=== PATIENT | female | born 1930 | race Asian ===

== ENCOUNTER 2017-01-02 08:36 | Inpatient (IN) | payer OTHER ==
[~2017-01-02] VITALS: Ht 149.9 cm; Wt 50.4 kg
[~2017-01-02 08:36] MED LIST: AMLO-512 PO; ASPI81TA2 PO; METO50 PO; OMEP20 PO
[2017-01-02] MEDS ORDERED: HYDR12.530 PO (08:51)
[2017-01-02] MEDS ORDERED: ALBUTEROL SULFATE 2.5 MG/0.5 ML NEB SOLUTION NEB ONE (10:45)
[2017-01-02] MEDS ORDERED: IPRATROPIUM BROMIDE 0.5 MG/2.5 ML NEB SOLUTION NEB ONE ×2 (10:45→16:00)
[2017-01-02 11:07] LABS: HEMATOCRIT 37.3 % (36-46); HEMOGLOBIN 10.7 g/dL (12.0-16.0); MEAN CORPUSCULAR HEMOGLOBIN 16.7 pg (26.0-34.0); MEAN CORPUSCULAR HGB CONC 28.7 G/dL (31.0-37.0); MEAN CORPUSCULAR VOLUME 58 fL (80-100); RED BLOOD CELL COUNT(AUTO) 6.41 MIL/uL (4.00-5.20); RED CELL DISTRIBUTION WIDTH 25.5 % (11.5-14.5); WHITE BLOOD COUNT (AUTO) 6.9 K/uL (4.5-11.0)
[2017-01-02 11:11] LABS: PLATELET COUNT (AUTO) 766 K/uL (150-450)
[2017-01-02 11:12] LABS: ANION GAP 8 mmol/L (8-16); CALCIUM, TOTAL 8.4 mg/dL (8.8-10.5); CARBON DIOXIDE 29 mmol/L (22-29); CHLORIDE 102 mmol/L (98-107); CREATININE 0.94 mg/dL (0.60-1.30); GLOMERULAR FILTR. RATE CALC 56 mL/min (>60); POTASSIUM 4.1 mmol/L (3.5-5.1); PROTHROMBIN TIME 10.7 SEC (9.4-11.6); SODIUM SERUM 139 mmol/L (136-145); UREA NITROGEN, BLOOD 14 mg/dL (7-18)
[2017-01-02 11:30] LABS: B-TYPE NATRIURETIC PEPTIDE 291 pg/mL (0-100)
[2017-01-02 11:36] LABS: BAND NEUTROPHILS % (MANUAL) 2 % (1-5); EOSINOPHILS % (MANUAL) 1 % (1-6); LYMPHOCYTES % (MANUAL) 27 % (22-44); TOTAL CELLS COUNTED 100
[2017-01-02 11:37] LABS: ALANINE AMINOTRANSFERASE 34 U/L (12-78); ALBUMIN 3.6 g/dL (3.4-5.0); ASPARTATE AMINOTRANSFERASE 39 U/L (15-37); BILIRUBIN,TOTAL 0.7 mg/dL (0.1-1.0); CREATINE KINASE, TOTAL 192 U/L (26-192)
[2017-01-02 11:38] LABS: RBC MORPHOLOGY COMMENT ABNORMAL R
[2017-01-02 12:32] LABS: APPEARANCE,URINE CLEAR (CLEAR); GLUCOSE, URINE (UA) NEGATIVE (NEGATIVE); KETONES,URINE NEGATIVE (NEGATIVE); LEUKOCYTE ESTERASE ,URINE NEGATIVE (NEGATIVE); OCCULT BLOOD,URINE SMALL (NEGATIVE); PROTEIN,URINE NEGATIVE (NEGATIVE)
[2017-01-02 12:33] LABS: ADD UA MICROSCOPIC YES
[2017-01-02 12:36] LABS: RBC,URINE 0-2 /HPF (0-2); SQUAMOUS EPITHELIAL CELL,UR Rare /LPF (None Seen); WBC,URINE None Seen /HPF (0-5)
[2017-01-02] MEDS ORDERED: FUROSEMIDE 40 MG/4 ML VIAL IVP ONE (13:45)
[2017-01-02] MEDS ORDERED: AZITHROMYCIN 500 MG/NS 250 ML IV ONE (13:45)
[2017-01-02] MEDS ORDERED: CefTRIAXone 1 GM/DEXTROSE 50 ML IV ONE (13:45)
[2017-01-02] MEDS ORDERED: ALBUTEROL SULFATE 5 MG/ML 20 ML NEB SOLN [BULK] NEB ONE (16:00)
[2017-01-02] MEDS ORDERED: MORPHINE SULFATE 2 MG/ML SYRINGE IVP PRN (16:30)
[2017-01-02] MEDS ORDERED: ZOLPIDEM TARTRATE 5 MG TABLET PO PRN (16:30)
[2017-01-02] MEDS ORDERED: ACETAMINOPHEN 325 MG TABLET PO PRN (16:30)
[2017-01-02] MEDS ORDERED: BISACODYL 10 MG RECTAL RECTAL SUPPOSITORY PR PRN (16:30)
[2017-01-02] MEDS ORDERED: ONDANSETRON HCL 4 MG/2 ML VIAL IVP PRN (16:30)
[2017-01-02] MEDS ORDERED: HYDROCODONE/ACETAMINOPHEN 5-325 MG TABLET PO PRN (16:30)
[2017-01-02] MEDS ORDERED: MAGNESIUM HYDROXIDE SUSPENSION 30 ML UDCUP PO PRN (16:30)
[2017-01-02] MEDS ORDERED: *CLINICAL-LEVOFLOXACIN IVPB DOSING CLINICAL ONE ×2 (16:30)
[2017-01-02] MEDS ORDERED: ALBUTEROL SULFATE 2.5 MG/0.5 ML NEB SOLUTION NEB PRN (16:30)
[2017-01-02] MEDS ORDERED: LEVOFLOXACIN 500 MG/D5% WATER 100 ML IV ONE (18:00)
[2017-01-02 18:34] VITALS: BP 139/71
[2017-01-02 19:06] LABS: INFLUENZA TYPE B NEGATIVE FOR TYPE B (NEGATIVE)
[2017-01-02 19:57] VITALS: BP 111/61
[2017-01-02] MEDS: DOCUSATE SODIUM 100 MG CAPSULE PO SCH (20:29)
[2017-01-02 23:48] VITALS: BP 108/59
[2017-01-03 04:30] VITALS: BP 139/64
[2017-01-03] MEDS: GuaiFENesin/D-METHORPHAN [SUGAR-FREE] 200-20MG/10 ML SYRUP UDCUP PO PRN ×2 (05:36→15:25)
[2017-01-03 07:20] VITALS: BP 124/68
[2017-01-03 07:43] LABS: CHOL/HDL RATIO 2.6 (3.9-5.7)
[2017-01-03] MEDS: PANTOPRAZOLE SODIUM 40 MG DR TABLET PO SCH (09:00)
[2017-01-03] MEDS ORDERED: FUROSEMIDE 20 MG/2 ML VIAL IVP ONE (09:00)
[2017-01-03] MEDS: ASPIRIN 81 MG CHEWABLE TABLET PO SCH (09:01)
[2017-01-03] MEDS: METOPROLOL TARTRATE 50 MG TABLET PO SCH (09:01)
[2017-01-03] MEDS: DOCUSATE SODIUM 100 MG CAPSULE PO SCH ×2 (09:01→19:42)
[2017-01-03 11:11] VITALS: BP 114/61
[2017-01-03] MEDS: AmLODIPine BESYLATE 10 MG TABLET PO SCH (14:06)
[2017-01-03] MEDS ORDERED: SODIUM CHLORIDE 0.9% 250 ML IV ONE (15:24)
[2017-01-03 15:43] VITALS: BP 111/58
[2017-01-03] MEDS ORDERED: LEVOFLOXACIN 250 MG/D5% WATER 50 ML IV SCH (18:00)
[2017-01-03 19:51] VITALS: BP 119/50
[2017-01-03] MEDS ORDERED: 0.9% SODIUM CHLORIDE 5 ML NEB SOLUTION NEB ONE (20:07)
[2017-01-03 23:46] VITALS: BP 126/63
[2017-01-04] MEDS: GuaiFENesin/D-METHORPHAN [SUGAR-FREE] 200-20MG/10 ML SYRUP UDCUP PO PRN (00:51)
[2017-01-04] MEDS ORDERED: HYPROMELLOSE 0.5% 15 ML OPHTHALMIC SOLUTION OU PRN (02:45)
[2017-01-04 04:45] VITALS: BP 129/75
[2017-01-04 06:53] LABS: BASOPHILS # (AUTO) 0.06 K/uL (0.00-0.20); EOSINOPHILS # (AUTO) 0.03 K/uL (0.00-0.70); EOSINOPHILS % (AUTO) 0.48 % (1.0-6.0); HEMOGLOBIN 9.8 g/dL (12.0-16.0); LYMPHOCYTES # (AUTO) 4.9 K/uL (1.0-4.8); LYMPHOCYTES % (AUTO) 75.1 % (22.0-44.0); MEAN CORPUSCULAR HGB CONC 29.6 G/dL (31.0-37.0); MEAN CORPUSCULAR VOLUME 57 fL (80-100); MONOCYTES # (AUTO) 0.4 K/uL (0.1-1.0); MONOCYTES % (AUTO) 6.5 % (2.0-9.0); NEUTROPHILS # (AUTO) 1.1 K/uL (1.8-7.7); PLATELET COUNT (AUTO) 638 K/uL (150-450); RED BLOOD CELL COUNT(AUTO) 5.74 MIL/uL (4.00-5.20); RED CELL DISTRIBUTION WIDTH 24.8 % (11.5-14.5); WHITE BLOOD COUNT (AUTO) 6.5 K/uL (4.5-11.0)
[2017-01-04 07:02] LABS: ANION GAP 10 mmol/L (8-16); CALCIUM, TOTAL 8.1 mg/dL (8.8-10.5); CARBON DIOXIDE 29 mmol/L (22-29); CHLORIDE 103 mmol/L (98-107); CREATININE 0.76 mg/dL (0.60-1.30); GLOMERULAR FILTR. RATE CALC > 60 mL/min (>60); POTASSIUM 3.9 mmol/L (3.5-5.1); SODIUM SERUM 142 mmol/L (136-145); UREA NITROGEN, BLOOD 16 mg/dL (7-18)
[2017-01-04 07:23] VITALS: BP 128/60
[2017-01-04 07:51] LABS: RBC MORPHOLOGY COMMENT ABNORMAL RBC MORPH
[2017-01-04] MEDS ORDERED: ALBUTEROL SULFATE 2.5 MG/0.5 ML NEB SOLUTION NEB SCH (08:00)
[2017-01-04] MEDS: PANTOPRAZOLE SODIUM 40 MG DR TABLET PO SCH (08:53)
[2017-01-04] MEDS: AmLODIPine BESYLATE 10 MG TABLET PO SCH (08:54)
[2017-01-04] MEDS: ASPIRIN 81 MG CHEWABLE TABLET PO SCH (08:54)
[2017-01-04] MEDS: METOPROLOL TARTRATE 50 MG TABLET PO SCH (08:54)
[2017-01-04] MEDS: DOCUSATE SODIUM 100 MG CAPSULE PO SCH (09:00)
[2017-01-04] MEDS ORDERED: 0.9% SODIUM CHLORIDE 5 ML NEB SOLUTION NEB ONE (09:18)
[2017-01-04 11:08] VITALS: BP 119/66
[2017-01-04] MEDS ORDERED: LEVAHFA IH (12:50)
[2017-01-04] MEDS ORDERED: DOXY100C PO (12:52)
[2017-01-04] MEDS ORDERED: GUAIF10 PO (12:56)
== END 2017-01-04 15:00 | disposition home or self-care (01) | DRG 291 ==
LOC: EMS 08:38 → 5N 17:34
PROVIDERS: ADMIT Internal Medicine; ATTEND Internal Medicine
DX: I50.33 Acute on chronic diastolic (congestive) heart failure (principal); J96.00 Acute respiratory failure, unspecified whether with hypoxia or hypercapnia; J06.9 Acute upper respiratory infection, unspecified; I11.0 Hypertensive heart disease with heart failure; K21.9 Gastro-esophageal reflux disease without esophagitis; Z79.899 Other long term (current) drug therapy; Z79.82 Long term (current) use of aspirin
CPT/HCPCS: 87804; 93005; 93306; 94640; 94644; 96365; 96366; 96367; 96368; 96375; 99291; J0456; J0696; J1940; J1956; J7050